=== PATIENT | female | born 1970 | race Caucasian/White ===

== ENCOUNTER 2017-01-08 18:22 | Emergency (ER) | payer BC ==
[2017-01-08 18:39] VITALS: BP 141/93
[2017-01-08] MEDS ORDERED: Ondansetron 4 MG/2 ML SDV IVPUSH ONE (19:27)
[2017-01-08] MEDS ORDERED: Sodium Chloride 0.9% 1,000 ML IV SCH (19:30)
[2017-01-08] MEDS ORDERED: Lidocaine 1% 2 ML ONE (20:04)
--- NOTE | 2017-01-08 20:32 | EDM.PDOC ---
ED HPI GENERAL MEDICAL PROBLEM - General Chief Complaint: Diabetic Complaint Stated Complaint: DIABETIC/ANXIETY Time Seen by Provider: 01/08/17 18:57 Source of Information: Reports: Patient, RN Notes Reviewed History Limitations: Reports: No Limitations - History of Present Illness INITIAL COMMENTS - FREE TEXT/NARRATIVE: The patient states that she is a type I diabetic, that she checks her blood sugar 3-4 times a day, and takes insulin per her own sliding scale. She states that her blood glucose has been elevated to the 400s for the past 2 weeks, approximately. She states that she checked her urine for ketones this past 01/05/2017, finding them to be moderate, and that they were high today. The patient denies recent fever, diarrhea, or abdominal pain, but reports that she has slight nausea without emesis, slight dysuria, a dry cough, and constipation. The patient states that she has had DKA about 5 times, most recently November 2015. The patient admits that the only reason she is here in the ED now is because her mother was brought to the ED. The patient reports that she has a history of diabetic neuropathy, depression/ anxiety, and dyslipidemia, all untreated. The patient's PCP is Danuta Stephenson, whom the patient has not contacted. - Related Data Allergies Allergy/AdvReac Type Severity Reaction Status Date / Time No Known Allergies Allergy Verified 01/08/17 18:35 Home Meds: Home Meds Insulin Aspart [NovoLOG] 0 unit SQ ASDIRECTED PRN 04/15/14 [History] Pregabalin [Lyrica] 100 mg PO BID 04/15/14 [History] DULoxetine [Cymbalta] 60 mg PO DAILY #30 cap 04/18/14 [Rx] Insulin Detemir [Levemir] 20 units SQ BID 11/12/15 [History] Aspirin 81 mg PO DAILY #30 tab.chew 11/14/15 [Rx] Lisinopril 20 mg PO DAILY #30 tablet 11/14/15 [Rx] Simvastatin [Zocor] 20 mg PO BEDTIME #30 tablet 11/14/15 [Rx] Sulfamethoxazole/Trimethoprim [Bactrim Ds Tablet] 1 tab PO Q12H #5 tablet [Rx] Past Medical History Cardiovascular History: Reports: High Cholesterol (untreated) Neurological History: Reports: Neuropathy, Diabetic (untreated) Psychiatric History: Reports: Anxiety (untreated), Depression (untreated) Endocrine/Metabolic History: Reports: Diabetes, Type I - Past Surgical History HEENT Surgical History: Reports: Naso-Sinus Surgery, Oral Surgery (Fence teeth extraction) Social & Family History - Family History Family Medical History: Noncontributory - Tobacco Use Smoking Status *Q: Current Every Day Smoker Years of Tobacco use: 29 Packs/Tins Daily: 1 - Alcohol Use Alcohol Use History: Yes Days Per Week of Alcohol Use: 3 Number of Drinks Per Day: 3 Total Drinks Per Week: 9 Alcohol Use Frequency: Socially - Recreational Drug Use Recreational Drug Use: No - Living Situation & Occupation Living situation: Reports: , Alone Occupation: Unemployed ED ROS GENERAL - Review of Systems Review Of Systems: See Below Constitutional: Reports: No Symptoms. Denies: Fever HEENT: Reports: No Symptoms Respiratory: Reports: Cough. Denies: Sputum Cardiovascular: Reports: No Symptoms Endocrine: Reports: No Symptoms GI/Abdominal: Reports: Constipation, Nausea (slight). Denies: Abdominal Pain, Diarrhea : Reports: Dysuria (slight) Musculoskeletal: Reports: No Symptoms Skin: Reports: No Symptoms Neurological: Reports: No Symptoms Psychiatric: Reports: No Symptoms Hematologic/Lymphatic: Reports: No Symptoms Immunologic: Reports: No Symptoms ED EXAM GENERAL NO PERIP PULSE - Physical Exam Exam: See Below Exam Limited By: No Limitations General Appearance: Alert, WD/WN, No Apparent Distress Eye Exam: Bilateral Eye: Normal Inspection Ears: Normal External Exam, Hearing Grossly Normal Nose: Normal Inspection, No Blood Throat/Mouth: Normal Inspection, Normal Lips, Normal Voice, No Airway Compromise Head: Atraumatic, Normocephalic Neck: Normal Inspection, Full Range of Motion Respiratory/Chest: No Respiratory Distress, Lungs Clear, Normal Breath Sounds, No Accessory Muscle Use Cardiovascular: Normal Peripheral Pulses, Regular Rate, Rhythm, No Gallop, No JVD, No Murmur, No Rub GI/Abdominal: Normal Bowel Sounds, Soft, Non-Tender, No Organomegaly, No Distention, No Abnormal Bruit, No Mass (Female) Exam: Deferred Rectal (Female) Exam: Deferred Back Exam: Normal Inspection, Full Range of Motion, NT Extremities: Normal Inspection, Normal Range of Motion, No Pedal Edema, Normal Capillary Refill Neurological: Alert, Oriented, Normal Cognition, No Motor/Sensory Deficits Psychiatric: Flat Affect Skin Exam: Warm, Dry, Intact, Normal Color, No Rash EKG INTERPRETATION EKG Date: 01/08/17 Time: 19:52 Rhythm: Other (Sinus tachycardia) Rate (Beats/Min): 110 [place]: Normal P-Wave: Present QRS: Normal ST-T: Normal QT: Normal Comparison: No Change (11/12/2015) Course - Vital Signs Last Recorded V/S: Last Vital Signs Temp 36.7 C 01/08/17 18:35 Pulse 128 H 01/08/17 18:35 Resp BP 141/93 H 01/08/17 18:35 Pulse Ox 99 01/08/17 18:35 Orthostatic Blood Pressure [ 113/77 Standing] Orthostatic Blood Pressure [ 110/77 Sitting] Orthostatic Blood Pressure [ 121/72 Supine] - Orders/Labs/Meds Orders: Active Orders 24 hr Category Date Time Status Accu Check [Blood Glucose Check, Bedside] [RC] ONETIME Care 01/08/17 22:24 Active EKG Documentation Completion [RC] STAT Care 01/08/17 19:25 Active Orthostatic Vital Signs [RC] STAT Care 01/08/17 19:25 Active Chest 2V [CR] Stat Exams 01/08/17 19:24 Taken CULTURE URINE [RM] Stat Lab 01/08/17 21:44 Received Magnesium Sulfate/Water [Magnesium Sulfate 2 GM in Med 01/08/17 21:04 Active Water 50 ML] 2 gm Premix Bag 1 bag IV ONETIME Sodium Chloride 0.9% [Normal Saline] 1,000 ml Med 01/08/17 19:30 Active IV ASDIRECTED Medication Orders Sodium Chloride (Normal Saline) 1,000 mls @ 250 mls/hr IV ASDIRECTED [place] Last Admin: 01/08/17 20:04 Dose: 250 mls/hr Magnesium Sulfate 2 gm/ Premix 50 mls @ 25 mls/hr IV ONETIME STA Stop: 01/08/17 23:03 Last Admin: 01/08/17 21:31 Dose: 25 mls/hr Labs: Laboratory Tests 01/08/17 01/08/17 01/08/17 Range/Units 18:47 19:25 20:04 WBC 7.03 (3.98-10.04) K/mm3 RBC 4.09 (3.98-5.22) M/mm3 Hgb 14.8 (11.2-15.7) gm/L Hct 41.4 (34.1-44.9) % MCV 101.2 H (79.4-94.8) fl MCH 36.2 H (25.6-32.2) pg MCHC 35.7 H (32.2-35.5) g/dl RDW Std Deviation 43.1 (36.4-46.3) fL Plt Count 239 (182-369) K/mm3 MPV 10.4 (9.4-12.3) fl Neutrophils % (Manual) 71 H (40-60) % Band Neutrophils % 0 (0-10) % Lymphocytes % (Manual) 22 (20-40) % Atypical Lymphs % 0 % Monocytes % (Manual) 5 (2-10) % Eosinophils % (Manual) 2 (0.7-5.8) % Basophils % (Manual) 0 L (0.1-1.2) Platelet Estimate Adequate Anisocytosis 1+ slight Macrocytosis 1+ slight RBC Morph Comment Not Reportable D-Dimer, Quantitative (0.19-0.59) mg/L Puncture Site Rt radial ABG pH 7.48 H (7.35-7.45) ABG pCO2 28.6 L (35.0-45.0) mmHg ABG pO2 92.0 (80.0-100.0) mmHg ABG HCO3 20.8 L (22.0-26.0) meq/L ABG O2 Saturation 98.3 H (96.0-97.0) % ABG Base Excess -1.1 (-2-2.0) A-a Gradient 7 mmHg O2 Delivery Device Room air Oxygen Flow Rate 0.0 FiO2 0.00 L (21.00-100.00) % Sodium (136-145) mEq/L Potassium (3.5-5.1) mEq/L Chloride (98-107) mEq/L Carbon Dioxide (21-32) mEq/L Anion Gap (5-15) BUN (7-18) mg/dL Creatinine (0.55-1.02) mg/dL Est Cr Clr Drug Dosing Estimated GFR (MDRD) (>60) mL/min BUN/Creatinine Ratio (14-18) Glucose (74-106) mg/dL POC Glucose 153 H (70-105) mg/dL Lactic Acid (0.4-2.0) mmol/L Calcium (8.5-10.1) mg/dL Magnesium (1.8-2.4) mg/dl Total Bilirubin (0.2-1.0) mg/dL AST (15-37) U/L ALT (14-59) U/L Alkaline Phosphatase (46-116) U/L Total Protein (6.4-8.2) g/dl Albumin (3.4-5.0) g/dl Globulin gm/dL Albumin/Globulin Ratio (1-2) Urine Color (Yellow) Urine Appearance (Clear) Urine pH (5.0-8.0) Ur Specific [place] (1.005-1.030) Urine Protein (Negative) Urine Glucose (UA) (Negative) Urine Ketones (Negative) Urine Occult Blood (Negative) Urine Nitrite (Negative) Urine Bilirubin (Negative) Urine Urobilinogen (0.2-1.0) Ur Leukocyte Esterase (Negative) Urine RBC (0-5) /hpf Urine WBC (0-5) /hpf Ur Epithelial Cells (0-5) /hpf Urine Bacteria (FEW) /hpf Urine Mucus (FEW) /hpf Urine HCG, Qual (NEGATIVE) 01/08/17 01/08/17 01/08/17 Range/Units 20:04 20:04 20:04 WBC (3.98-10.04) K/mm3 RBC (3.98-5.22) M/mm3 Hgb (11.2-15.7) gm/L Hct (34.1-44.9) % MCV (79.4-94.8) fl MCH (25.6-32.2) pg MCHC (32.2-35.5) g/dl RDW Std Deviation (36.4-46.3) fL Plt Count (182-369) K/mm3 MPV (9.4-12.3) fl Neutrophils % (Manual) (40-60) % Band Neutrophils % (0-10) % Lymphocytes % (Manual) (20-40) % Atypical Lymphs % % Monocytes % (Manual) (2-10) % Eosinophils % (Manual) (0.7-5.8) % Basophils % (Manual) (0.1-1.2) Platelet Estimate Anisocytosis Macrocytosis RBC Morph Comment D-Dimer, Quantitative 0.25 (0.19-0.59) mg/L Puncture Site ABG pH (7.35-7.45) ABG pCO2 (35.0-45.0) mmHg ABG pO2 (80.0-100.0) mmHg ABG HCO3 (22.0-26.0) meq/L ABG O2 Saturation (96.0-97.0) % ABG Base Excess (-2-2.0) A-a Gradient mmHg O2 Delivery Device Oxygen Flow Rate FiO2 (21.00-100.00) % Sodium 138 (136-145) mEq/L Potassium 3.0 L (3.5-5.1) mEq/L Chloride 101 (98-107) mEq/L Carbon Dioxide 23 (21-32) mEq/L Anion Gap 17.0 H (5-15) BUN 3 L (7-18) mg/dL Creatinine 0.6 (0.55-1.02) mg/dL Est Cr Clr Drug Dosing TNP Estimated GFR (MDRD) > 60 (>60) mL/min BUN/Creatinine Ratio 5.0 L (14-18) Glucose 142 H (74-106) mg/dL POC Glucose (70-105) mg/dL Lactic Acid 1.8 (0.4-2.0) mmol/L Calcium 10.2 H (8.5-10.1) mg/dL Magnesium 1.6 L (1.8-2.4) mg/dl Total Bilirubin 0.7 (0.2-1.0) mg/dL AST 181 H (15-37) U/L ALT 79 H (14-59) U/L Alkaline Phosphatase 144 H (46-116) U/L Total Protein 8.0 (6.4-8.2) g/dl Albumin 3.5 (3.4-5.0) g/dl Globulin 4.5 gm/dL Albumin/Globulin Ratio 0.8 L (1-2) Urine Color (Yellow) Urine Appearance (Clear) Urine pH (5.0-8.0) Ur Specific [place] (1.005-1.030) Urine Protein (Negative) Urine Glucose (UA) (Negative) Urine Ketones (Negative) Urine Occult Blood (Negative) Urine Nitrite (Negative) Urine Bilirubin (Negative) Urine Urobilinogen (0.2-1.0) Ur Leukocyte Esterase (Negative) Urine RBC (0-5) /hpf Urine WBC (0-5) /hpf Ur Epithelial Cells (0-5) /hpf Urine Bacteria (FEW) /hpf Urine Mucus (FEW) /hpf Urine HCG, Qual (NEGATIVE) 01/08/17 01/08/17 01/08/17 Range/Units 21:45 21:45 22:28 WBC (3.98-10.04) K/mm3 RBC (3.98-5.22) M/mm3 Hgb (11.2-15.7) gm/L Hct (34.1-44.9) % MCV (79.4-94.8) fl MCH (25.6-32.2) pg MCHC (32.2-35.5) g/dl RDW Std Deviation (36.4-46.3) fL Plt Count (182-369) K/mm3 MPV (9.4-12.3) fl Neutrophils % (Manual) (40-60) % Band Neutrophils % (0-10) % Lymphocytes % (Manual) (20-40) % Atypical Lymphs % % Monocytes % (Manual) (2-10) % Eosinophils % (Manual) (0.7-5.8) % Basophils % (Manual) (0.1-1.2) Platelet Estimate Anisocytosis Macrocytosis RBC Morph Comment D-Dimer, Quantitative (0.19-0.59) mg/L Puncture Site ABG pH (7.35-7.45) ABG pCO2 (35.0-45.0) mmHg ABG pO2 (80.0-100.0) mmHg ABG HCO3 (22.0-26.0) meq/L ABG O2 Saturation (96.0-97.0) % ABG Base Excess (-2-2.0) A-a Gradient mmHg O2 Delivery Device Oxygen Flow Rate FiO2 (21.00-100.00) % Sodium (136-145) mEq/L Potassium (3.5-5.1) mEq/L Chloride (98-107) mEq/L Carbon Dioxide (21-32) mEq/L Anion Gap (5-15) BUN (7-18) mg/dL Creatinine (0.55-1.02) mg/dL Est Cr Clr Drug Dosing Estimated GFR (MDRD) (>60) mL/min BUN/Creatinine Ratio (14-18) Glucose (74-106) mg/dL POC Glucose 58 L (70-105) mg/dL Lactic Acid (0.4-2.0) mmol/L Calcium (8.5-10.1) mg/dL Magnesium (1.8-2.4) mg/dl Total Bilirubin (0.2-1.0) mg/dL AST (15-37) U/L ALT (14-59) U/L Alkaline Phosphatase (46-116) U/L Total Protein (6.4-8.2) g/dl Albumin (3.4-5.0) g/dl Globulin gm/dL Albumin/Globulin Ratio (1-2) Urine Color Yellow (Yellow) Urine Appearance Slt cloudy H (Clear) Urine pH 6.0 (5.0-8.0) Ur Specific [place] 1.020 (1.005-1.030) Urine Protein 1+ H (Negative) Urine Glucose (UA) 2+ H (Negative) Urine Ketones 2+ H (Negative) Urine Occult Blood Trace-intact H (Negative) Urine Nitrite Positive H (Negative) Urine Bilirubin Negative (Negative) Urine Urobilinogen 0.2 (0.2-1.0) Ur Leukocyte Esterase Negative (Negative) Urine RBC 0-5 (0-5) /hpf Urine WBC 0-5 (0-5) /hpf Ur Epithelial Cells Not seen (0-5) /hpf Urine Bacteria Many H (FEW) /hpf Urine Mucus Not seen (FEW) /hpf Urine HCG, Qual Negative (NEGATIVE) Meds: Medications Generic Name Dose Route Start Last Admin Trade Name Freq PRN Reason Stop Dose Admin Sodium Chloride 1,000 mls @ 250 mls/hr 01/08/17 19:30 01/08/17 20:04 Normal Saline IV 250 mls/hr ASDIRECTED [place] Administration Magnesium Sulfate 2 gm/ Premix 50 mls @ 25 mls/hr 01/08/17 21:04 01/08/17 21: 31 IV 01/08/17 23:03 25 mls/hr ONETIME STA Administration Discontinued Medications Generic Name Dose Route Start Last Admin Trade Name Freq PRN Reason Stop Dose Admin Lidocaine HCl Confirm 01/08/17 20:04 Xylocaine-Mpf 1% Administered 01/08/17 20:05 Dose 2 mls @ as directed .ROUTE .STK-MED ONE Ondansetron HCl 4 mg 01/08/17 19:27 01/08/17 20:05 Zofran IVPUSH 01/08/17 19:28 4 mg ONETIME ONE Administration Potassium Chloride 40 meq 01/08/17 22:13 01/08/17 22:31 Klor-Con M20 PO 01/08/17 22:14 40 meq ONETIME ONE Administration Trimethoprim/Sulfamethoxazole 1 tab 01/08/17 22:08 01/08/17 22:32 Septra Ds PO 01/08/17 22:09 1 tab ONETIME ONE Administration - Re-Assessments/Exams Free Text/Narrative Re-Assessment/Exam: 01/08/17 19:50 Two-view chest radiograph appears to be grossly normal. Cardiac silhouette is within normal limits. No pulmonary vascular congestion. No pleural effusions. No focal infiltrate. No pneumothorax. Formal read per the Radiologist pending. 01/08/17 20:25 The patient is not orthostatic. The patient's ABG demonstrates [id number] respiratory alkalosis. 01/08/17 21:05 The patient's potassium is depressed at 3.0, however, her magnesium is depressed at 1.6. I have ordered a 1 g magnesium rider, and will follow that with oral KCl. 01/08/17 22:09 The patient's urinalysis, collected by quick catheter, demonstrates positive nitrites and many bacteria, however, no WBCs or leukocyte esterase. It is not clear that this is a urinary tract infection, however, given that the patient is a diabetic, I will treat her as such with oral Bactrim. I will order a urine culture. 01/08/17 22:44 The patient was concerned that her blood glucose had gone up, therefore an Accu- Chek was repeated. It returned low at 58. The patient is being given some juice. 01/08/17 22:53 Test results discussed with the patient. Today's workup finds hypokalemia and hypomagnesemia, a possible UTI, and acute on chronic respiratory alkalosis, most likely due to untreated anxiety. The patient has been started on Bactrim, and I will prescribe a 3 day course. I would like the patient to follow-up with her PCP, Danuta Stephenson, this coming 01/12/2017, not only to check on her urine culture results, but to discuss starting an antianxiety medication, as well. The patient is agreeable. Departure - Departure Time of Disposition: 22:54 Disposition: Home, Self-Care 01 Condition: Good Clinical Impression: Hyperventilation syndrome, Anxiety, Hypokalemia, Hypomagnesemia, UTI (urinary tract infection) - Discharge Information Referrals: Danuta Stephenson, COSMETIC MANAGER [Primary Care Provider] - Forms: ED Department Discharge Additional Instructions: You were seen in the emergency room over a concern of hyperglycemia and possible diabetic ketoacidosis. Workup in the ER included blood work, an arterial blood gas, a urinalysis, a urine test, a urine culture, an ECG, a chest x-ray, and positional blood pressure checks. Your workup showed that you are hyperventilating, MOST LIKELY due to your untreated anxiety disorder. Your potassium and magnesium were found to be low. Both were replaced. You MAY have a urinary tract infection. You have been started on the antibiotic Bactrim. Take one tablet every 12 hours, as prescribed. Stay adequately hydrated. We recommend that you follow-up with your PCP, Danuta Stephenson, this coming 01/12/2017, to check on your urine culture results, to make sure that you are on the right antibiotic, but also to discuss starting some long-term anti-anxiety medication. If any other problems, please do not hesitate to return to the ER. - My Orders Last 24 Hours: My Active Orders 01/08/17 19:24 Chest 2V [CR] Stat 01/08/17 19:25 EKG Documentation Completion [RC] STAT Orthostatic Vital Signs [RC] STAT 01/08/17 19:30 Sodium Chloride 0.9% [Normal Saline] 1,000 ml IV ASDIRECTED 01/08/17 21:04 Magnesium Sulfate/Water [Magnesium Sulfate 2 GM in Water 50 ML] 2 gm Premix Bag 1 bag IV ONETIME 01/08/17 21:44 CULTURE URINE [RM] Stat 01/08/17 22:24 Accu Check [Blood Glucose Check, Bedside] [RC] ONETIME - Assessment/Plan Last 24 Hours: My Active Orders 01/08/17 19:24 Chest 2V [CR] Stat 01/08/17 19:25 EKG Documentation Completion [RC] STAT Orthostatic Vital Signs [RC] STAT 01/08/17 19:30 Sodium Chloride 0.9% [Normal Saline] 1,000 ml IV ASDIRECTED 01/08/17 21:04 Magnesium Sulfate/Water [Magnesium Sulfate 2 GM in Water 50 ML] 2 gm Premix Bag 1 bag IV ONETIME 01/08/17 21:44 CULTURE URINE [RM] Stat 01/08/17 22:24 Accu Check [Blood Glucose Check, Bedside] [RC] ONETIME
[2017-01-08] MEDS ORDERED: Magnesium Sulfate/Water 2 GM in Premix Bag 1 BAG IV STA (21:04)
[2017-01-08] MEDS ORDERED: Sulfamethoxazole/Trimethoprim 800-160 MG Tab PO ONE (22:08)
[2017-01-08] MEDS ORDERED: Potassium Chloride 20 MEQ Tab.ER PO ONE (22:13)
--- NOTE | 2017-01-09 08:33 | CR ---
Chest: Two views of the chest were obtained. Comparison: Previous chest x-ray of 11/12/15. Heart size and mediastinum are normal. Lungs are clear. Bony structures are unremarkable for the patient's age. Impression: 1. Nothing acute is identified on two-view chest x-ray. Diagnostic code #1
== END 2017-01-08 23:15 | disposition home or self-care (01) ==
LOC: JD.ED 18:22
DX: F45.8 Other somatoform disorders (principal); F41.9 Anxiety disorder, unspecified; E87.6 Hypokalemia; E83.42 Hypomagnesemia; N39.0 Urinary tract infection, site not specified; E10.40 Type 1 diabetes mellitus with diabetic neuropathy, unspecified; E78.00 Pure hypercholesterolemia, unspecified; F32.9 Major depressive disorder, single episode, unspecified; F17.210 Nicotine dependence, cigarettes, uncomplicated; Z79.82 Long term (current) use of aspirin; Z79.899 Other long term (current) drug therapy
CPT/HCPCS: 36415; 36600; 71020; 80053; 81001; 81025; 82803; 82962; 83605; 83735; 85025; 85379; 87086; 87088; 87186; 93005; 96361; 96365; 96375; 99284; A9270; J2405; J7040; P9612; J3475

== ENCOUNTER 2021-10-25 12:36 | Emergency (ER) | payer OTHER ==
[2021-10-25 14:47] VITALS: BP 128/81; PULSE 105
[2021-10-25] MEDS ORDERED: cefTRIAXone 2 GM in Sodium Chloride 0.9% 100 ML IV ONE (14:57)
[2021-10-25] MEDS ORDERED: Sodium Chloride 0.9% 1,000 ML IV STA (14:57)
== END 2021-10-25 16:35 | disposition home or self-care (01) ==
LOC: JD.ED 12:36
DX: K04.7 Periapical abscess without sinus (principal); E10.40 Type 1 diabetes mellitus with diabetic neuropathy, unspecified; F41.9 Anxiety disorder, unspecified; F32.A Depression, unspecified; F17.210 Nicotine dependence, cigarettes, uncomplicated
CPT/HCPCS: 36415; 80053; 85025; 86140; 96365; 99283; J0696; J7030

== ENCOUNTER 2024-03-02 18:27 | Inpatient (IN) | payer OTHER ==
[2024-03-02] MEDS ORDERED: Sodium Chloride 0.9% 10 ML Syringe FLUSH PRN (19:27)
[2024-03-02] MEDS: Sodium Chloride 0.9% 1,000 ML IV STA ×2 (19:54→21:35)
[2024-03-02] MEDS: cefTRIAXone 2 GM in Sodium Chloride 0.9% 100 ML IV ONE (19:54)
[2024-03-02] MEDS: Ondansetron 4 MG/2 ML SDV IVPUSH ONE (19:54)
[2024-03-02 19:55] LABS: BASOPHILS PERCENT AUTO 0.2 % (0.0-1.0); EOSINOPHILS PERCENT AUTO 0.2 % (0.0-6.0); HEMATOCRIT 47.1 % (37.0-47.0); HEMOGLOBIN 16.3 gm/dl (12.0-16.0); IMMATURE GRAN ABSOLUTE AUTO 0.08 K/mm3 (0.00-0.05); IMMATURE GRAN PERCENT AUTO 0.5 % (0.0-0.4); LYMPHOCYTES ABSOLUTE AUTO 0.8 K/mm3 (1.0-4.8); LYMPHOCYTES PERCENT AUTO 5.2 % (24.0-44.0); MEAN CORPUSCULAR HEMOGLOBIN 32.7 pg (28.0-32.0); MEAN CORPUSCULAR HGB CONC 34.6 g/dl (32.0-36.0); MEAN CORPUSCULAR VOLUME 94.6 fl (83.0-99.0); MEAN PLATELET VOLUME 10.2 fl (9.4-12.3); MONOCYTES ABSOLUTE AUTO 1.6 K/mm3 (0.0-0.8); MONOCYTES PERCENT AUTO 10.2 % (0.0-8.0); NEUTROPHILS ABSOLUTE AUTO 12.9 K/mm3 (1.8-7.7); NEUTROPHILS PERCENT AUTO 83.7 % (41.0-71.0); PLATELET COUNT,PLT 265 K/mm3 (150-400); RED BLOOD CELL COUNT 4.98 M/mm3 (4.10-5.30); WHITE BLOOD CELL COUNT,WBC 15.42 K/mm3 (3.9-11.3)
[2024-03-02 20:29] LABS: A/G RATIO 0.9 (1-2); ALBUMIN 3.9 g/dl (3.4-5.0); BUN/CREATININE RATIO 12.7 (14-18); C-REACTIVE PROTEIN 11.35 mg/dL (<0.30); CALCIUM 9.6 mg/dL (8.5-10.1); CREATININE 1.1 mg/dL (0.55-1.02); EST CRCL DRUG DOSING (CG) 47.32 mL/min; PROTEIN TOTAL,TP 8.5 g/dl (6.4-8.2)
[2024-03-02 20:30] LABS: LACTIC ACID 2.2 mmol/L (0.4-2.0)
[2024-03-02 21:00] LABS: BASE EXCESS ARTERIAL -11.5 (-2-2.0); BICARBONATE,ARTERIAL 13.5 meq/L (22.0-26.0); O2 SATURATION ARTERIAL 97.2 % (96.0-97.0); PCO2 ARTERIAL 28.8 mmHg (35.0-45.0)
[2024-03-02] MEDS ORDERED: Insulin Regular in 0.9 % NACL 100 ML IV SCH (21:15)
[2024-03-02 21:54] LABS: SLIDE REVIEW ABNORMAL SMEAR
[2024-03-02] MEDS ORDERED: Acetaminophen 325 MG Tab PO PRN (22:15)
[2024-03-02] MEDS ORDERED: Naloxone 0.4 MG/ML SDV IVPUSH PRN (22:15)
[2024-03-02] MEDS: Iopamidol 612 MG/ML 100 ML Bottle IVPUSH ONE (22:43)
[2024-03-02] MEDS ORDERED: Dextrose 5%-0.9% NaCl 1,000 ML IV SCH (22:45)
[2024-03-02] MEDS: Ondansetron 4 MG/2 ML SDV IV PRN (23:08)
[2024-03-02] MEDS: Insulin Regular in 0.9 % NACL 100 ML IV SCH (23:35)
[2024-03-03] MEDS: Dextrose 5%-0.45% NaCl 1,000 ML IV SCH (00:02)
[2024-03-03] MEDS: metroNIDAZOLE/Normal Saline 500 MG in Premix Bag 1 BAG IV SCH (00:24)
[2024-03-03 00:55] LABS: ANION GAP 16.7 (5-15); BUN/CREATININE RATIO 11.3 (14-18); CALCIUM 8.5 mg/dL (8.5-10.1); CREATININE 0.8 mg/dL (0.55-1.02); EST CRCL DRUG DOSING (CG) 65.06 mL/min; PHOSPHORUS 1.8 mg/dL (2.6-4.7); POTASSIUM,K 3.7 mEq/L (3.5-5.1)
[2024-03-03] MEDS: HYDROmorphone 0.5 MG/0.5 ML Syringe IVPUSH PRN (01:25)
[2024-03-03] MEDS: Potassium Chloride 10 MEQ in Premix Bag 1 BAG IV ONE ×2 (03:02→05:32)
[2024-03-03 03:32] LABS: APPEARANCE,URINE CLEAR (Clear); BILIRUBIN,URINE NEGATIVE (Negative); COLOR,URINE YELLOW (Yellow); GLUCOSE,URINE 2+ (Negative); KETONES,URINE 4+ (Negative); LEUKOCYTE ESTERASE,URINE NEGATIVE (Negative); NITRITE,URINE NEGATIVE (Negative); OCCULT BLOOD,URINE TRACE-LYSED (Negative); PROTEIN,URINE 1+ (Negative); UROBILINOGEN,URINE 0.2 (0.2-1.0)
[2024-03-03 04:35] LABS: BASOPHILS PERCENT AUTO 0.2 % (0.0-1.0); EOSINOPHILS PERCENT AUTO 0.1 % (0.0-6.0); HEMATOCRIT 39.5 % (37.0-47.0); IMMATURE GRAN ABSOLUTE AUTO 0.08 K/mm3 (0.00-0.05); IMMATURE GRAN PERCENT AUTO 0.6 % (0.0-0.4); LYMPHOCYTES ABSOLUTE AUTO 1.3 K/mm3 (1.0-4.8); MEAN CORPUSCULAR HEMOGLOBIN 33.3 pg (28.0-32.0); MEAN CORPUSCULAR HGB CONC 35.4 g/dl (32.0-36.0); MEAN CORPUSCULAR VOLUME 93.8 fl (83.0-99.0); MEAN PLATELET VOLUME 10.6 fl (9.4-12.3); MONOCYTES ABSOLUTE AUTO 1.4 K/mm3 (0.0-0.8); MONOCYTES PERCENT AUTO 9.9 % (0.0-8.0); NEUTROPHILS ABSOLUTE AUTO 11.2 K/mm3 (1.8-7.7); NEUTROPHILS PERCENT AUTO 80.2 % (41.0-71.0); PLATELET COUNT,PLT 235 K/mm3 (150-400); RED BLOOD CELL COUNT 4.21 M/mm3 (4.10-5.30); WHITE BLOOD CELL COUNT,WBC 13.92 K/mm3 (3.9-11.3)
[2024-03-03 04:48] LABS: ANION GAP 15.6 (5-15); BUN/CREATININE RATIO 11.4 (14-18); CREATININE 0.7 mg/dL (0.55-1.02); EST CRCL DRUG DOSING (CG) 74.35 mL/min; PHOSPHORUS 1.5 mg/dL (2.6-4.7); POTASSIUM,K 3.6 mEq/L (3.5-5.1)
[2024-03-03] MEDS: Acetaminophen/HYDROcodone 325-5 MG Tab PO PRN (06:52)
[2024-03-03 07:55] LABS: BACTERIA,URINE NOT SEEN /hpf (FEW); EPITHELIAL CELLS,URINE 0-5 /hpf (0-5); MUCUS,URINE NOT SEEN /hpf (FEW); RBC,URINE 0-5 /hpf (0-5); WBC,URINE 0-5 /hpf (0-5)
[2024-03-03 08:12] LABS: ANION GAP 13.4 (5-15); BUN/CREATININE RATIO 8.6 (14-18); CREATININE 0.7 mg/dL (0.55-1.02); EST CRCL DRUG DOSING (CG) 74.35 mL/min; PHOSPHORUS 1.3 mg/dL (2.6-4.7); POTASSIUM,K 3.4 mEq/L (3.5-5.1)
[2024-03-03] MEDS: Potassium Phosphates 30 MMOLE in Sodium Chloride 0.9% 500 ML IV SCH (10:04)
[2024-03-03] MEDS: Enoxaparin 40 MG/0.4 ML Syringe SUBCUT SCH (10:09)
[2024-03-03 12:49] LABS: ANION GAP 12.8 (5-15); BUN/CREATININE RATIO 8.3 (14-18); CREATININE 0.6 mg/dL (0.55-1.02); EST CRCL DRUG DOSING (CG) 86.75 mL/min; POTASSIUM,K 3.8 mEq/L (3.5-5.1)
[2024-03-03] MEDS: Morphine 2 MG/ML SYRINGE IVPUSH PRN (13:47)
[2024-03-03] MEDS: Insulin Glargine,Human Rec. Analog 100 Units/ML 3 ML Pen SUBCUT ONE (18:53)
[2024-03-03] MEDS: Sodium Chloride 0.9% 1,000 ML IV SCH (20:42)
[2024-03-03] MEDS: cefTRIAXone 2 GM in Sodium Chloride 0.9% 100 ML IV SCH (20:42)
[2024-03-04 07:05] LABS: BASOPHILS PERCENT AUTO 0.2 % (0.0-1.0); EOSINOPHILS ABSOLUTE AUTO 0.1 K/mm3 (0.0-0.4); EOSINOPHILS PERCENT AUTO 0.4 % (0.0-6.0); HEMATOCRIT 38.3 % (37.0-47.0); HEMOGLOBIN 13.3 gm/dl (12.0-16.0); IMMATURE GRAN ABSOLUTE AUTO 0.06 K/mm3 (0.00-0.05); IMMATURE GRAN PERCENT AUTO 0.5 % (0.0-0.4); LYMPHOCYTES ABSOLUTE AUTO 1.2 K/mm3 (1.0-4.8); LYMPHOCYTES PERCENT AUTO 10.6 % (24.0-44.0); MEAN CORPUSCULAR HGB CONC 34.7 g/dl (32.0-36.0); MEAN PLATELET VOLUME 10.2 fl (9.4-12.3); MONOCYTES ABSOLUTE AUTO 0.9 K/mm3 (0.0-0.8); MONOCYTES PERCENT AUTO 7.6 % (0.0-8.0); NEUTROPHILS PERCENT AUTO 80.7 % (41.0-71.0); PLATELET COUNT,PLT 196 K/mm3 (150-400); RED BLOOD CELL COUNT 4.03 M/mm3 (4.10-5.30); WHITE BLOOD CELL COUNT,WBC 11.19 K/mm3 (3.9-11.3)
[2024-03-04] MEDS: Insulin Lispro 100 Unit/ML 3 ML KwikPen SUBCUT SCH (07:36)
[2024-03-04 07:45] LABS: A/G RATIO 0.7 (1-2); ALBUMIN 2.6 g/dl (3.4-5.0); ANION GAP 17.4 (5-15); BILIRUBIN TOTAL 0.6 mg/dL (0.2-1.0); C-REACTIVE PROTEIN 7.39 mg/dL (<0.30); CREATININE 0.5 mg/dL (0.55-1.02); EST CRCL DRUG DOSING (CG) 104.1 mL/min; POTASSIUM,K 3.4 mEq/L (3.5-5.1); PROTEIN TOTAL,TP 6.1 g/dl (6.4-8.2)
[2024-03-04] MEDS: Sertraline 50 MG Tab PO SCH (09:24)
[2024-03-04] MEDS: Rosuvastatin 10 MG Tab PO SCH (09:24)
[2024-03-04] MEDS: Insulin Glargine,Human Rec. Analog 100 Units/ML 3 ML Pen SUBCUT SCH (09:25)
[2024-03-04] MEDS: Sodium Chloride 0.9% 1,000 ML IV SCH (10:02)
[2024-03-04 13:24] VITALS: BP 133/71; PULSE 98
== END 2024-03-04 14:30 | disposition home or self-care (01) | DRG 638 ==
LOC: JD.ED 18:27 → JD.ICU 21:14
PROVIDERS: ADMIT Family Medicine; ATTEND Family Medicine
DX: E10.10 Type 1 diabetes mellitus with ketoacidosis without coma (principal); E87.1 Hypo-osmolality and hyponatremia; L03.211 Cellulitis of face; F41.9 Anxiety disorder, unspecified; I10 Essential (primary) hypertension; F32.A Depression, unspecified; E10.40 Type 1 diabetes mellitus with diabetic neuropathy, unspecified; E78.00 Pure hypercholesterolemia, unspecified; E87.8 Other disorders of electrolyte and fluid balance, not elsewhere classified; K04.7 Periapical abscess without sinus; E86.0 Dehydration; Z79.4 Long term (current) use of insulin; Z79.82 Long term (current) use of aspirin; Z79.899 Other long term (current) drug therapy
CPT/HCPCS: 36415; 36600; 70487; 70487-26; 80048; 80053; 81001; 82800; 82803; 82947; 83605; 84100; 85025; 86140; 87040; 96365; 96375; 99284; 99285-25; A9270-GY; J0696; J1171; J1650; J1815; J1815-GY; J1836; J2270; J2405; J3480; J3490; J7030; J7040; J7799; Q9967